=== PATIENT | male | born 1985 | race Caucasian/White ===

== ENCOUNTER → 2023-05-25 08:38 | Outpatient (CLI) | payer BC, SELFPAY ==
--- NOTE | ~2023-05-25 | CT_ITS ---
EXAMINATION: CT abdomen pelvis wo/w con DATE: 05/25/2023 09:20 INDICATION: Gross hematuria TECHNIQUE: Computed tomography (CT) of the abdomen and pelvis was performed without and subsequently with 130 CC Omnipaque 350 intravenous contrast. Automated exposure control and iterative reconstructi on technique were employed. Exam dose: 1007.59 mGy-cm total exam DLP. COMPARISON: None. FINDINGS: The lung bases are clear. Normal heart size. No pericardial or pleural effusion. The liver, gallbladder, spleen, pancreas, and adrenal glands and kidneys appear normal. There is a 7 mm right renal cyst. No bile duct or pancreatic duct dilatation. No urinary tract calculus or hydroureteronephrosis. Normal caliber of the abdominal aorta. No intraperitoneal or retroperitoneal or pelvic mass lesion or adenopathy or ascites. The urinary bladder appears normal. No evidence of appendicitis. No bowel obstruction, bowel wall thickening, pneumatosis or intraperiton eal free air. IMPRESSION: 7 mm right renal cyst Reviewed, dictated and finalized at Location A. Reviewed, dictated and finalized at location B. F ENGINEER WATERWORKS IMPRESSION: 7 mm right renal cyst
== END ==
PROVIDERS: PCP Nurse Practitioner Family; Visit Provider Nurse Practitioner Family
DX: R31.0 Gross hematuria (principal); N28.1 Cyst of kidney, acquired
CPT/HCPCS: 74178; Q9967

== ENCOUNTER → 2023-06-06 14:16 | Outpatient (CLI) | payer BC, SELFPAY ==
--- NOTE | ~2023-06-06 | MR_ITS ---
EXAMINATION: MR abdomen wo/w con DATE: 06/06/2023 15:12 INDICATION: Renal cyst TECHNIQUE: Magnetic resonance imaging (MRI) of the abdomen was performed without and with 15 mL Multi chrissie intravenous contrast. Sequences included coronal T2-weighted SS-FSE, coronal and axial FS 2D-F IESTA, axial STIR FSE, axial T2-weighted SS-FSE, axial T2-weighted FS SS-FSE, axial diffusion-weighte d SE, axial dual-echo T1-weighted FSPGR, and axial and coronal T1-weighted LAVA. Postcontrast axial T 1-weighted LAVA images were obtained in a time course. Postcontrast coronal T1-weighted LAVA images w ere obtained. COMPARISON: CT dated 05/25/2023 FINDINGS: Heart size is normal. No pericardial or pleural effusion. Liver, gallbladder, pancreas, left kidney a nd bilateral adrenal glands are normal. 8 mm T2 hyperintense nonenhancing cystic lesion at the medial interpolar region of the right kidney. Negligible enhancement along a single thin internal septation within the lesion consistent with a Bosniak 2 lesion. No other renal lesions identified. Low signal intensity calcified granuloma in the spleen. Visualized bowels are unremarkable. No pathologically en larged abdominal or upper pelvic lymphadenopathy. Normal bone marrow signal throughout. IMPRESSION: 1. 8 mm likely benign Bosniak 2 right renal cyst requiring no follow-up. Reviewed, dictated and finalized at location A. ICATION COUNSELOR
== END ==
PROVIDERS: PCP Nurse Practitioner Family
DX: N28.1 Cyst of kidney, acquired (principal)
CPT/HCPCS: 74183; A9577

== ENCOUNTER 2025-01-21 07:53 | Emergency (ER) | payer BC, SELFPAY ==
[2025-01-21 07:59] VITALS: BP 122/83; PULSE 82; RESP 16; TEMP 36.6; O2SAT 98
--- OUTSIDE RECORDS SUMMARY | 2025-01-21 08:43 | XMS_ITS | Clinical Summary ---
Author Organization [facility] Address [address] [place] [address] Care Team Providers Care Cleat Maker Name Role Phone Aziza Oliver MD Primary Care Provider [phone] Allergies No known active allergies Medications No known medications Active Problems No known active problems Encounters Date Type Department Care Team Description 11/17/2024 1:00 PM CDT Telemedicine [facility] Medical Group Virtual Care [address] [place] [phone] Estela Craven NP Contact dermatitis due to poison surinder (Primary Dx) 11/17/2024 Patient Self-Triage [facility] HealthCare/ Physicians [address] [place] [address] Mychart, Generic Provider from Last 3 Months Social History Tobacco Use Types Packs/Day Years Used Date Smoking Tobacco: Never Smokeless Tobacco: Never AUDIT-C Answer Date Recorded Q1: How often do you have a drink containing alc ohol? 2-3 times a week 12/10/2020 Q2: How many drinks containi ng alcohol do you have on a typical day when you are drinking? 1 or 2 12/10/2020 Frequency of Binge Drinking Not on file 11/14 Personal Safety Answer Date Recorded Getting School Help Needed Not on file 07/16 Sex and Gender Information Value Date Recorded Sex Assigned at Not on file Legal Sex Male 8:40 PM INTERNAL CONTROLS CONSULTANT Gender Identity Not on file Sexual Orientation Not on file Obstetrics History Plan of Treatment Health Maintenance Due Date Last Done Comments Depression Screening 1984 Varicella Vaccines (1 of 2 - 13+ 2-dose series) 1997 Hepatitis B Screening 2002 Regular Well Visit/Exam 18-64 2002 HPV Vaccines (1 - 3-dose SCD M series) 08/15/2011 DTaP/Tdap/Td Vaccine (2 - Td or Tdap) 06/22/2024 06/22/2014 Influenza Vaccine (#1) 2025 Hepatitis C Screening Completed 04/14/2021 Pneumococcal vaccine <65 Aged Out No longer eligible based on patient's age to complete this topic Procedures Procedure Name Priority Date/Time Associated Diagnosis Comments HEPATITIS C ANTIBODY Routine 04/14/2021 3:04 PM INTERNAL CONTROLS CONSULTANT Encounter for screening for infections with predominantly sexual mode of transmission from Last 3 Months or Most Recently Relevant to Health Maintenance Results * Hepatitis C antibody (04/14/2021 3:04 PM INTERNAL CONTROLS CONSULTANT) Hep C Ab Nonreactive Nonreactive [facility] Comment:Antibodies to HCV no t detected. Does NOT exclude the possibility of recent exposure to HCV. Blood 04/14/2021 3:04 PM INTERNAL CONTROLS CONSULTANT 04/14/2021 3:15 PM INTERNAL CONTROLS CONSULTANT Cyndee Pike MD LAB MICROBIOLOGY - GENERAL OR DERABLES Edited Result - Final [facility] Department [place] [address] from Last 3 Months or Most Recently Relevant to Health Maintenance Insurance BRISA ACCESS CHOICE ANTH ACCESS CHOICE Care Teams Cleat Maker Relationship Specialty Start Date End Date Aziza Oliver MD [address] [facility] [address] [place] [id number] PCP - General Reproductive Endocrinology and Infertility 10/31/20
[2025-01-21 09:58] VITALS: BP 122/84; PULSE 69; RESP 15; O2SAT 99
--- NOTE | 2025-01-21 10:43 | ED_ITS ---
HPI - General Adult General Chief complaint: Back Pain/Injury Stated complaint: right lower back pain Time Seen by Provider: 01/21/25 08:30 History of Present Illness HPI narrative: 39-year-old male presents today emergency department for evaluation for right- sided hip pain that radiates down his leg. Patient denies any change in bowel or bladder habits. Patient feels he is not able to lift his toes as well on the right foot as on the left. Patient denies any specific incident of injury. Patient reports symptoms have been ongoing for the last 3 weeks. Related Data Allergies Allergy/AdvReac Type Severity Reaction Status Date / Time No Known Allergies Allergy Verified 01/21/25 07:59 Review of Systems Review of Systems: All systems reviewed & are unremarkable except as noted in HPI and below PMFSH Social History Social History Smoking status: Never smoker Alcohol intake: current Exam Narrative: APPEARANCE: Well appearing, no pain, no distress, well-nourished. HEAD: normocephalic, atraumatic. EYES: PERRLA/EOMI, conjunctivae clear. NOSE: Normal no drainage EARS:TMS clear with good light reflex. THROAT: Pharynx clear, no exudate. NECK: Supple. No adenopathy, no masses. RESPIRATORY: Airway patent, respirations nonlabored. Clear to auscultation bilaterally, no rales, rhonchi, wheezing. CARDIOVASCULAR: Regular rate and rhythm without murmurs rubs or gallops. ABDOMINAL: Soft, nontender, nondistended, normal bowel sounds MUSCULOSKELETAL: Moves all extremities. Strength/ROM intact, No edema, No calf tenderness. NEURO: Alert. Cranial nerves II through XII intact. Good gait. Good coordination SKIN: Warm, dry. Normal Color Course Vital Signs Vital signs: Vital Signs Temperature 97.8 F 01/21/25 07:59 Pulse Rate 82 01/21/25 07:59 Respiratory Rate 16 01/21/25 07:59 Blood Pressure 122/83 01/21/25 07:59 Pulse Oximetry 98 01/21/25 07:59 Oxygen Delivery Room Air 01/21/25 07:59 Temperature 97.8 F 01/21/25 07:59 Pulse Rate 75 01/21/25 10:57 Respiratory Rate 15 01/21/25 10:57 Blood Pressure 127/87 01/21/25 10:57 Pulse Oximetry 100 01/21/25 10:57 Oxygen Delivery Room Air 01/21/25 07:59 Medical Decision Making MDM Narrative Medical decision making narrative: 39-year-old male present to the ED for evaluation for right hip pain that radiates down his right leg. Patient does complain pain the right lateral leg. This may be secondary to change an gait and straining the lateral leg muscles versus as sciatica pain. Patient has normal strength reflexes the foot other than reported difficulty lifting his great toe on the right foot. Patient denies any change in bowel or bladder habits. Patient does have follow-up with his primary care physician on Tuesday. Patient will be started on a Medrol Dosepak and provided Flexeril for muscle relaxant. Patient was advised to have follow-up as scheduled and to have an outpatient MRI. CT scan was not ordered as patient no specific incident of injury. Patient was comfortable the plan for discharge and close follow-up. All questions and concerns were addressed. Suspect sciatica as the underlying etiology for the patient's back pain and potential muscle strain on the right lateral leg due to alteration of his gait due to the back pain. Differential Diagnosis Differential Diagnosis: Cauda equina, lumbar fracture, sciatica, calf strain, DVT Vital Signs Vital Signs: Vital Signs Temperature 97.8 F 01/21/25 07:59 Pulse Rate 82 01/21/25 07:59 Respiratory Rate 16 01/21/25 07:59 Blood Pressure 122/83 01/21/25 07:59 Pulse Oximetry 98 01/21/25 07:59 Oxygen Delivery Room Air 01/21/25 07:59 Temperature 97.8 F 01/21/25 07:59 Pulse Rate 75 01/21/25 10:57 Respiratory Rate 15 01/21/25 10:57 Blood Pressure 127/87 01/21/25 10:57 Pulse Oximetry 100 01/21/25 10:57 Oxygen Delivery Room Air 01/21/25 07:59 Discharge Plan Discharge Clinical Impression: Strain of lumbar region, Sciatica Patient Disposition: Home Condition: Stable Instructions: Antibiotic Form, Sciatica (ED), Back Pain (ED) Additional Instructions: Have close follow-up with your primary care physician on Tuesday as scheduled. You need to have an outpatient MRI but this would need to be ordered by your primary care physician. Medrol Dosepak as directed until completed. Flexeril for muscle spasm. If you have any worsening symptoms please call or return to the emergency department. Patient Language: Albanian Prescriptions: New cyclobenzaprine 10 mg tablet 10 mg PO BID PRN (Reason: muscle spasm) Qty: 14 0RF methylprednisolone [Medrol (Car)] 4 mg tablets,dose pack See Rx Instructions .ROUTE .COMPLEX Qty: 21 0RF Rx Instructions: for 6 days Follow-up/Referrals: UNKNOWN,DOCTOR [Primary Care Provider]
[2025-01-21] MEDS: KETOROLAC 30 MG/ML VIAL (*BKC) IM (10:52)
[2025-01-21] MEDS: dexAMETHasone SOD PHOS INJ 10 MG/ML 1 ML VIAL IM (10:53)
[2025-01-21 10:57] VITALS: BP 127/87; PULSE 75; RESP 15; O2SAT 100
== END 2025-01-21 10:59 | disposition home or self-care (01) ==
PROVIDERS: Emergency Provider Emergency Medicine
DX: S39.012A Strain of muscle, fascia and tendon of lower back, initial encounter (principal); M54.41 Lumbago with sciatica, right side; X58.XXXA Exposure to other specified factors, initial encounter
CPT/HCPCS: 96372; 99284; J1100; J1885

== ENCOUNTER 2025-01-23 08:48 | Outpatient (CLI) | payer BC, SELFPAY ==
--- NOTE | ~2025-01-23 | XR_ITS ---
XR lumbar spine 2-3V Indication: RT SIDE LBP RADIATES INTO RT LEG; Lumbago with sciatica Comparison: None Findings: The vertebral heights are intact. No fracture or subluxation. The disc heights are intact. Soft tissues unremarkable Impression: No acute abnormality. Reviewed, dictated and finalized at location A. Impression: No acute abnormality.
--- NOTE | ~2025-01-23 | XR_ITS ---
EXAMINATION: XR hip RT min 2V, 01/23/2025 9:05 CDT HISTORY: RT HIP PAIN RADIATES INTO RT LEG COMPARISON: No comparisons available. Findings: No acute fracture or malalignment. No significant degenerative changes. Soft tissues unremarkable. Impression: No acute fracture or malalignment. Reviewed, dictated and finalized at location A. Impression: No acute fracture or malalignment.
--- NOTE | ~2025-01-23 | XR_ITS ---
XR_CERV2-3V_CR Indication: Cervicalgia; RT SIDED NECK PAIN Comparison: None Findings: The vertebral heights are intact. No fracture or subluxation. The disc heights are intact. Soft tissues unremarkable Impression: No acute abnormality. Reviewed, dictated and finalized at location A. Impression: No acute abnormality.
== END 2025-01-23 08:49 | disposition home or self-care (01) ==
PROVIDERS: PCP Nurse Practitioner Family; Visit Provider Nurse Practitioner Family
DX: M54.41 Lumbago with sciatica, right side (principal); M25.551 Pain in right hip; M54.2 Cervicalgia
CPT/HCPCS: 72040; 72100; 73502

== ENCOUNTER 2025-02-08 04:23 | Emergency (ER) | payer BC, SELFPAY ==
--- OUTSIDE RECORDS SUMMARY | 2025-02-08 04:26 | XMS_ITS | Clinical Summary ---
Author Organization [facility] Address [address] [place] [address] Care Team Providers Care Foundation Stage Teacher Name Role Phone Aziza Oliver MD Primary Care Provider [phone] Allergies No known active allergies Medications No known medications Active Problems No known active problems Encounters Date Type Department Care Team Description 11/17/2024 1:00 PM CDT Telemedicine [facility] Medical Group Virtual Care [address] [place] [phone] Estela Craven NP Contact dermatitis due to poison surinder (Primary Dx) 11/17/2024 Patient Self-Triage [facility] HealthCare/ Physicians [address] [place] [address] Mychart, Generic Provider from Last [...] on file Legal 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 Does NOT exclude the possibility of recent exposure to HCV. Blood 04/14/2021 3:04 PM AGRICULTURAL SPECIALIST 04/14/2021 3:15 PM AGRICULTURAL SPECIALIST Cyndee Pike MD LAB MICROBIOLOGY - GENERAL OR DERABLES Edited Result - Final [facility] Department [place] [address] from Last 3 Months or Most Recently Relevant to Health Maintenance Insurance BRISA ACCESS CHOICE ANTH ACCESS CHOICE Care Teams Foundation Stage Teacher Relationship Specialty Start Date End Date Aziza Oliver MD [address] [facility] [address] [place] [id number] PCP - General Reproductive Endocrinology and Infertility 10/31/20
[2025-02-08 04:45] VITALS: BP 162/103; PULSE 107; RESP 20; TEMP 36.4; O2SAT 99
--- OUTSIDE RECORDS SUMMARY | 2025-02-08 05:16 | XMS_ITS | Clinical Summary ---
Author Organization [facility] Address [address] [place] [address] Care Team Providers Care Music Education Director Name Role Phone Aziza Oliver MD Primary Care Provider [phone] Allergies No known active allergies Medications No known medications Active Problems No known active problems Encounters Date Type Department Care Team Description 11/17/2024 1:00 PM CDT Telemedicine [facility] Medical Group Virtual Care [address] [place] [phone] Estela Craven NP Contact dermatitis due to poison surinder (Primary Dx) 11/17/2024 Patient Self-Triage [facility] HealthCare/ Physicians [address] [place] [address] Mychart, Generic Provider from Last [...] on file Legal Sex Male 8:40 PM ENVIRONMENTAL OFFICER Gender Identity Not on file Sexual Orientation [...] HEPATITIS C ANTIBODY Routine 04/14/2021 3:04 PM ENVIRONMENTAL OFFICER Encounter for screening for infections with predominantly sexual mode of transmission from Last 3 Months or Most Recently Relevant to Health Maintenance Results * Hepatitis C antibody (04/14/2021 3:04 PM ENVIRONMENTAL OFFICER) Hep C Ab Nonreactive Nonreactive [facility] Comment:Antibodies to HCV no t detected. Does NOT exclude the possibility of recent exposure to HCV. Blood 04/14/2021 3:04 PM ENVIRONMENTAL OFFICER 04/14/2021 3:15 PM ENVIRONMENTAL OFFICER Cyndee Pike MD LAB MICROBIOLOGY - GENERAL OR DERABLES Edited Result - Final [facility] Department [place] [address] from Last 3 Months or Most Recently Relevant to Health Maintenance Insurance BRISA ACCESS CHOICE ANTH ACCESS CHOICE Care Teams Music Education Director Relationship Specialty Start Date End Date Aziza Oliver MD [address] [facility] [address] [place] [phone] PCP - General Reproductive Endocrinology and Infertility 10/31/20
--- OUTSIDE RECORDS SUMMARY | 2025-02-08 05:16 | XMS_ITS | Clinical Summary ---
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 SUPERVISOR Gender Identity Not on file Sexual Orientation Not on file Plan of Treatment Upcoming Encounters Date Type Department Care Team (Late st Contact Info) Description 02/15/2025 12:00 PM CDT Appointment [facility] [address] [place] [address] Jennifer Corona NP [address] [place] [address] Health Maintenance Due Date Last Done Comments Annual Physical 08/15/1987 Hepatitis C 2002 DTaP, Tdap and Td Vaccines ( 1 - Tdap) 08/15/2003 Hepatitis B Vaccines (1 of 3 - 19+ 3-dose series) 08/15/2003 HPV Vaccines (1 - 3-dose SCD M series) 08/15/2011 COVID-19 Vaccine (2023-2 5 season) 2025 Meningococcal B Vaccine Aged Out No l onger eligible based on patient's age to complete this topic Meningococcal Vaccine Aged Out No jacquelyn magalys eligible based on patient's age to complete this topic Pneumococcal Vaccine: Pediat rics (0 to 5 Years) and At-Risk Patients (6 to 49 Years) Aged Out No longer eligible b ased on patient's age to complete this topic RSV Immunizations Under 20 Months Aged Out No longer eligible based on patient's age to complete this topic Insurance * Guarantor: Alfred Price Account Type Relation to Patient Date of Phone Billing Address Personal/Family Self 1985 [phone] [place] [address] [facility] Care Teams Tray Packer Relationship Specialty Start Date End Date Jennifer Corona NP [address] [place] [address] PCP - General Nurse Practitioner Family 02/07/25
--- NOTE | 2025-02-08 05:22 | ED_ITS ---
HPI - Back Pain/Injury General Chief Complaint: Back Pain/Injury Stated Complaint: lower back pain Time Seen by Provider: 02/08/25 04:51 History of Present Illness HPI Narrative: 39-year-old male with a past medical history including sciatica presenting to the emergency department for right-sided low back pain. States he has an MRI appointment tomorrow morning to get imaging to evaluate for his sciatica. Endorses some worsening pain today so he came to the ER. He states the last t letty he was here he got injections that helped his pain immensely but the prescription medications that he got sent home with did not help. He has since followed up with his PCP and got an MRI referral. Denies any traumatic injuries. No new symptoms but he states that previously he had some difficulty raising his right great toe which he still expresses difficulty raising. No new neurological symptoms. No footdrop. No incontinence to bowel or bladder. No traumatic injuries. States he has had symptoms like this previously but not to this degree. Was otherwise in his normal state of health. Related Data Allergies Allergy/AdvReac Type Severity Reaction Status Date / Time No Known Allergies Allergy Verified 01/23/25 07:53 Review of Systems Review of Systems: As reviewed above in HPI [facility] Past Medical History Medical History Encounter to establish care Social History Social History Smoking status: Never smoker Alcohol intake: current Exam Narrative: GENERAL: [Well-appearing, well-nourished, and in no acute distress.] HEAD: [Normocephalic, atraumatic.] EYES: [PERRLA and EOMI.] ENT: Nares clear, no rhinorrhea or epistaxis. Mucous membranes moist. NECK: Supple. CHEST: [Clear to auscultation. No respiratory distress.] HEART: [Regular rate and rhythm]. No murmur heard. [Normal peripheral pulses.] ABDOMEN: [Soft, nondistended], [nontender], [No rigidity or guarding] EXTREMITIES: Normal range of motion. [No edema.] SKIN: Warm, dry, no rash. NEURO: [No focal deficits]. Alert and oriented [x3.] Ambulating in the examination room. EHL on the right lower extremity 4/5 compared to the left but FHL 5/5 bilateral. No footdrop. No urinary incontinence or saddle anesthesias. PSYCH: [Normal mood and affect.] Course Vital Signs Vital signs: Vital Signs Temperature 36.4 C 02/08/25 04:45 Pulse Rate 107 H 02/08/25 04:45 Respiratory Rate 20 02/08/25 04:45 Blood Pressure 162/103 H 02/08/25 04:45 Pulse Oximetry 99 02/08/25 04:45 Oxygen Delivery Room Air 02/08/25 04:45 Temperature 36.4 C 02/08/25 04:45 Pulse Rate 107 H 02/08/25 04:45 Respiratory Rate 20 02/08/25 04:45 Blood Pressure 162/103 H 02/08/25 04:45 Pulse Oximetry 99 02/08/25 04:45 Oxygen Delivery Room Air 02/08/25 04:45 MDM - Back Pain/Injury MDM Narrative Medical decision making narrative: 39-year-old male with a past medical history including sciatica presenting to the emergency department for right-sided low back pain. States he has an MRI appointment tomorrow morning to get imaging to evaluate for his sciatica. Endorses some worsening pain today so he came to the ER. He states the last time he was here he got injections that helped his pain immensely but the prescription medications that he got sent home with did not help. He has since followed up with his PCP and got an MRI referral. Denies any traumatic injuries. No new symptoms but he states that previously he had some difficulty raising his right great toe which he still expresses difficulty raising. No new neurological symptoms. No footdrop. No incontinence to bowel or bladder. No traumatic injuries. States he has had symptoms like this previously but not to this degree. Was otherwise in his normal state of health. Ambulating in the examination room. EHL on the right lower extremity 4/5 compared to the left but FHL 5/5 bilateral. No footdrop. No urinary incontinence or saddle anesthesias. Patient is uncomfortable but does find positions of comfort that alleviate his pain entirely. He has no difficulties walking and his examination is unchanged from prior evaluation. No significant red flag signs but does have some right great toe extension weakness likely from sciatic nerve irritation rather than nerve root compression given the lack of trauma. Urine he has an MRI scheduled tomorrow for further evaluation of this and a PCP to refer him to appropriate specialist such as Neurosurgery depending on findings. Counseled him on plan of care at this time which will be for pain control and did offer advanced imaging such as a CT which is all we have available at this time. Patient would prefer pain control and get his MRI tomorrow. He was given similar regimen to prior including Toradol and Decadron as well as topical lidocaine and oral Robaxin for analgesia. Will be prescribed new regimen and follow-up instructions as well as strict return precautions. Medical Records Attestation: I reviewed the patient's medical records. Discharge Plan Discharge Clinical Impression: Sciatica Lumbago with sciatica, right side Qualifiers: Chronicity: acute Back pain laterality: right Qualified Code(s): M54.41 - Lumbago with sciatica, right side Patient Disposition: Home Condition: Stable Instructions: Antibiotic Form, Sciatica (ED), Acute Low Back Pain (ED), Back Pain (ED) Additional Instructions: Follow-up with your MRI tomorrow and follow-up with your primary care provider for further issues. We have prescribed you some pain medications. Return to the ER if you have increased pain in your back, you develop lower extremity weakness/numbness/paralysis, you have numbness or tingling in your private parts, or you are unable to control your ability to urinate/stool. Patient Language: Urugu[place] Prescriptions: New ketorolac 10 mg tablet 10 mg PO Q8H PRN (Reason: pain) 5 Days Qty: 20 0RF Rx Instructions: maximum total duration of 5 days from all oral, intranasal, or parenteral formulations methocarbamol 750 mg tablet 750 mg PO TID PRN (Reason: pain) Qty: 20 0RF lidocaine 5 % adhesive patch,medicated 1 patch topical DAILY Qty: 15 0RF Rx Instructions: leave on most painful area for up to 12 hrs No Action hydrocodone-acetaminophen 5-325 mg tablet 1 tablet PO Q8H PRN (Reason: pain) Qty: 21 0RF methylprednisolone [Medrol (Car)] 4 mg tablets,dose pack See Rx Instructions .ROUTE .COMPLEX Qty: 21 0RF Rx Instructions: for 6 days celecoxib 200 mg capsule 200 mg PO .COMPLEX Qty: 30 0RF Rx Instructions: 400 mg, followed by 200 mg ~ 12 hours later, if needed, on day 1; thereafter, 200 mg twice daily as needed or scheduled; maximum: 400 mg/day. Follow-up/Referrals: Jennifer Corona APRN [Primary Care Provider, Internal Medicine] Time of Disposition: 06:14
[2025-02-08] MEDS: dexAMETHasone SOD PHOS INJ 10 MG/ML 1 ML VIAL IM (05:54)
[2025-02-08] MEDS: KETOROLAC (*BKC) 60 MG/2 ML VIAL IM (05:54)
[2025-02-08] MEDS: LIDOCAINE 5% PATCH 1 PATCH TRANSDERM (05:55)
[2025-02-08 06:26] VITALS: BP 156/93; PULSE 98; RESP 17; O2SAT 98
== END 2025-02-08 06:29 | disposition home or self-care (01) ==
PROVIDERS: Emergency Provider Student in an Organized Health Care Education/Training Program; PCP Nurse Practitioner Family
DX: M54.41 Lumbago with sciatica, right side (principal)
CPT/HCPCS: 96372; 99284; A9270; J1100; J1885

== ENCOUNTER 2025-04-01 02:16 | Day surgery (SDC) | payer BC, SELFPAY ==
--- NOTE | 2025-03-21 10:18 | SUR.PREOP ---
[facility] has started construction of its new state of the art ER which will open Spring 2026. With this, we anticipate parking may be a challenge for some our surgical patients and families. Parking spaces are limited but are available for all Surgical, obstetrics, and ER patients sharing this lot. If you arrive and find you are having a hard time finding a parking space, please note that we understand the challenges, please drive around the hospital and park near Hospital Entrance 1. When you enter this entrance, you can ask a volunteer to direct or take you back to the surgical waiting area to check in. We appreciate everyone?s understanding of these expected challenges while we build for your future. Report to the Outpatient Waiting Room, entrance under the green pavilion located off [address], at time _1045__ on date _04/01/25__. Planned Procedure Time: _1145__.? Time changes happen often and if your time is changed the preop area will call you the afternoon before. - You and your visitor will be asked to self-screen and do not enter if you have any COVID symptoms. Please call surgeon if you need to reschedule. - A mask is optional within the hospital at this time. Patients may have a light meal before proceedure however no food/fluids 2hrs prior. Take only the following medications with a SIP of water on the morning of surgery: _all scheduled medication__ DO NOT STOP ANY OF YOUR OTHER PRESCRIPTION MEDICATIONS PRIOR TO SURGERY EXCEPT THE FOLLOWING Hold all vitamins and supplements for 3 days per anesthesiologist. Medications to discontinue per physician _Per the surgeon pt is to hold his celebrex 7 days prior.__ Date to take last dose_03/24/25_ Please no make-up, nail nepali, hairspray, perfume, deodorant, or body powder the day of surgery.? No jewelry (including any body piercings) or valuables the day of surgery, leave them at home.? Please take a shower or bath the night before, or the morning of, surgery with an antibacterial soap.? Wear comfortable, loose fitting clothing.? - Jewelry must be removed prior to entering the operating room.? Rings and piercings that are not removed may be cut off. - The hospital will not accept responsibility for valuables.? - Please leave all valuables, including medications, at home the day of surgery. If you are going home after surgery, a licensed driver material handler must drive you home.? - NO public transportation without another adult if you receive anesthesia. - We recommend that an adult stay with you for 24 hours following discharge. - We also recommend that you do not drive, make important decision, drink alcoholic beverages, or take any drugs that were not prescribed by your health care provider for at least 24 hours after your discharge time.. Follow any additional instructions given to you from your surgeon. Telephone instructions given to _Alfred_and asked if any additional questions and then verbalized understanding. Patient advised to call surgeon office or pre surgery nurse liaison [phone] if any additional questions.
[2025-03-21 10:20] VITALS: BMI 24.4
--- NOTE | ~2025-04-01 | XR_ITS ---
EXAM/PROCEDURE: XR fluoroscopy no charge HISTORY: LUMBAR STEROID INJECTION COMPARISON: None available. TECHNIQUE: Fluoroscopic guided pain management images Fluoroscopy time: 20.2seconds DAP: 1.2604 [place] per square centimeter IMPRESSION: Fluoroscopic guidance for pain management. No radiologist present for this procedure. See procedure/operative notes for complete evaluation. Reviewed, dictated and finalized at location A. 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 No radiologist present for this proc edure. See procedure/operative notes for complete evaluation.
--- OUTSIDE RECORDS SUMMARY | 2025-04-01 02:19 | XMS_ITS | Clinical Summary ---
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 Does NOT exclude the possibility of recent exposure to HCV. 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 Department [place] [address] from Last 3 Months or Most Recently Relevant to Health Maintenance Insurance [employer] Care Teams Service Loss Control Consultant Relationship Specialty Start Date End Date Aziza Oliver MD [id number] [address] PCP - General Reproductive Endocrinology and Infertility 10/31/20
--- NOTE | 2025-04-01 10:41 | PM.HPGS ---
History of Present Illness History of Present Illness Consent: Risks, benefits, and alternatives have been discussed and questions answered. Patient agrees to proceed with procedure. Chief complaint: lumbar radiculopathy Narrative: Alfred Price is a 39 year old male who presents for right-sided L4-5 transforaminal epidural steroid injection under fluoroscopic guidance with contrast controlled to address lumbar radiculopathy. Review of Systems Review of Systems: All systems reviewed & are unremarkable except as noted in HPI and below PMFSH Past Medical History Medical History (Updated 02/26/25 @ 19:03 by Chandrakant Garcia APRN) Lumbar radiculopathy Lumbar spondylosis Lumbar stenosis Encounter to establish care Social History Social History Smoking status: Former smoker Additional smoking assessment comments: smoked on the weekends 15 years ago irrigularlly. Alcohol intake: current Drinks per week: 1 Living arrangements: with family Spiritual care concerns: No Meds Home Medications and Allergies Home Medications ?Medication ?Instructions ?Recorded ?Confirmed ?Type hydrocodone 5 mg-acetaminophen 325 1 tablet PO Q8H PRN pain #21 tabs 02/12/25 03/21/25 Rx mg tablet celecoxib 200 mg capsule 200 mg PO .COMPLEX #30 caps 03/21/25 03/21/25 Rx gabapentin 300 mg capsule 300 mg PO QHS #30 caps 03/21/25 Rx Allergies Allergy/AdvReac Type Severity Reaction Status Date / Time No Known Allergies Allergy Verified 03/21/25 10:19 Exam Narrative: The patient's physical exam is essentially unchanged from prior examination on 02/26/2025. Specifically, patient demonstrates normal lung capacity, tidal volume and respiratory rate without wheezes, crackles, rales or rubs. Heart rate and rhythm are regular without murmurs, gallops or rubs. No JVD. Pulses 2+ globally without increasing peripheral edema. AAOx3 with no evidence of confusion, intoxication or altered mental state, NC/AT without acute distress or altered consciousness. Speech, cognition, mood, insight and judgment at baseline and within normal limits. Assessment and Plan Assessment and plan (1) Spinal stenosis at L4-L5 level: Code(s): M48.061 - Spinal stenosis, lumbar region without neurogenic claudication Status: Acute Assessment and Plan: Proceed as planned with right-sided L4-5 transforaminal epidural steroid injection under fluoroscopic guidance with contrast control to address lumbar radiculopathy. (2) Lumbar radiculopathy: Code(s): M54.16 - Radiculopathy, lumbar region Status: Acute
--- NOTE | 2025-04-01 10:43 | P.OP_ITS ---
Procedure Note - Detailed Date of Procedure 04/01/25 Pre-op Diagnosis lumbar radiculopathy Post-op Diagnosis Same Procedure Performed Right Lumbar Transforaminal Epidural Steroid Injection under Fluoroscopic Guidance and with Contrast Control at L4-5. Surgeon Nikhil Carl MD Anesthesia Local Description of Procedure INFORMED CONSENT: Risks, benefits and alternatives to the procedure were discussed in detail with the patient who expressed explicit understanding and consent to proceed. Patient was informed verbally and in written form regarding the risks associated with the procedure including the low risk of serious infection, bleeding/bruising, allergic reaction, nerve or organ injury, p aralysis, procedural site pain or discomfort, worsening pain and/or mobility, failure to treat and/or disfigurement. The patient expressed explicit understanding and consent to proceed. All materials required for the procedure were available prior to procedure start. Site and side was marked prior to procedure and confirmed in the presence of the patient. PROCEDURE IN DETAIL: The patient was brought to the procedural suite and placed in the prone position. Patient was made comfortable with use of pillows under the head/chest, hips and ankles. Skin overlying the injection site was prepared broadly with ChloraPrep applicator and draped in a sterile manner. Aseptic technique was employed throughout. The endplates of the vertebral body at the site of interest were aligned in the AP view. Ipsilateral oblique angulation was utilized to better visualize the neuroforamen of interest. Local anesthesia was established by infiltration with approximately 5 mL of 0.5% PF lidocaine via a 1-1/2 inch 27-gauge needle. A 22-gauge 3.5 inch Arelis (pencil point) spinal needle was advanced until the needle approached the 6 o'clock position on the pedicle just superior to the exiting nerve root. on the right at L4-5. Lateral view was utilized to confirm appropriate position of the needle tip within the superior and posterior portion of the respective foramen. In an AP view, 1 mL of Omnipaque 300 contrast medium was injected after negative aspiration for CSF, blood or other bodily fluid, showing appropriate neurogram without evidence of intravascular or intrathecal spread of contrast. Digital subtraction imaging was used with an additional 1ml of the same contrast medium to confirm absence of intravascular contrast spread. A 1mL solution containing 10 mg of dexamethasone was injected after negative repeat aspiration. Appropriate spread of the injectate was confirmed with washout of previously injected contrast. No parasthesias were elicited. Needle was removed completely intact without difficulty. Images were saved and documented in the patient chart. Patient's skin was cleaned and sterile bandage applied. The patient tolerated the procedure well. The patient was transported to the recovery area in stable condition where they were observed for an appropriate amount of time prior to discharge, without evidence of complication. The patient was instructed to avoid excessive activity for the next 48 hours, including climbing and frequent use of stairs. Showers only for 48 hours. They were instructed not to drive or operate heavy machinery for 24 hours. They are to monitor for severe headaches, fevers, chills, night sweats, erythema/swelling at the site or any other signs of infection, bleeding/bruising, bowel or bladder changes as well as new pain, weakness or numbness in the upper or lower extremity. Should they notice these changes, they are instructed to call our office immediately or report directly to the nearest Emergency Department if no answer or if after posted office hours. COMPLICATIONS: [None] COMMENTS: [None] CONTRAST WASTED: 28 mL Omnipaque 300. STEROID WASTED: 0 mg of dexamethasone. Complications No immediate complications Condition Stable Disposition Same day [facility] Billing Surgery - Charge Forward: Surgery Billing
--- NOTE | 2025-04-01 10:43 | WPDHPUPDATE1 ---
History and Physical Update Update Date/Time: 04/01/25 10:43 History and Physical has been reviewed, including an updated exam of the patient. There are NO changes in the patient's condition. Risks, benefits, and alternatives have been discussed and questions answered. Patient agrees to proceed with procedure.
[2025-04-01 11:10] VITALS: BP 144/52; PULSE 78; RESP 16; TEMP 37.1; O2SAT 96
[2025-04-01 11:20] VITALS: BP 138/84; PULSE 63; RESP 16; O2SAT 100
[2025-04-01 11:25] VITALS: BP 102/59; PULSE 69; RESP 16; O2SAT 100
[2025-04-01] MEDS: LIDOCAINE 2% PF LOCAL INJ 5 ML VIAL 1 ML INFILTRATE (11:27)
[2025-04-01] MEDS: DEXAMETHASONE SODIUM PHOSP/PF 10 MG/ML 1 ML VIAL I-LAMINAR (11:28)
[2025-04-01 11:39] VITALS: BP 115/70; PULSE 70; RESP 16; O2SAT 100
== END 2025-04-01 11:49 | disposition home or self-care (01) ==
PROVIDERS: PCP Nurse Practitioner Family; Visit Provider Anesthesiology Pain Medicine
PROC: (CPT 64483; principal; 2025-04-01 11:45)
DX: M48.061 Spinal stenosis, lumbar region without neurogenic claudication (principal); M54.16 Radiculopathy, lumbar region
CPT/HCPCS: 64483; 99199; J2003; Q9965